=== PATIENT | male | born 2000 | race African-American/Black ===

== ENCOUNTER 2019-02-21 14:45 | Emergency (ER) | payer OTHER ==
[~2019-02-21] VITALS: Ht 167.6 cm; Wt 79.5 kg
[2019-02-21] MEDS ORDERED: SUMA50TA2 PO (14:51)
[2019-02-21] MEDS ORDERED: AIMO70IN SC (14:51)
[2019-02-21] MEDS ORDERED: diphenhydrAMINE INJ 50MG/ML VIAL (J1200) IV ONE (15:15)
[2019-02-21] MEDS ORDERED: METOCLOPRAMIDE INJ 10MG/2ML VIAL (J2765) IV ONE (15:15)
[2019-02-21] MEDS ORDERED: NS 1,000 ML IV ONE (15:15)
[2019-02-21] MEDS ORDERED: KETOROLAC 30 MG/ML VIAL (J1885) IV ONE (15:15)
[2019-02-21 16:55] VITALS: BP 130/60
== END 2019-02-21 16:59 | disposition home or self-care (01) ==
LOC: M ED 14:45
DX: G43.909 Migraine, unspecified, not intractable, without status migrainosus (principal); Z82.0 Family history of epilepsy and other diseases of the nervous system; Z79.899 Other long term (current) drug therapy
CPT/HCPCS: 96374; 96375; 99284; J1200; J1885; J2765

== ENCOUNTER 2019-04-09 08:03 | Inpatient (IN) | payer OTHER ==
[~2019-04-09] VITALS: Ht 167.6 cm; Wt 79.4 kg
[~2019-04-09 08:03] MED LIST: AIMO70IN SC; SUMA50TA2 PO
[2019-04-09] MEDS ORDERED: NS 1,000 ML IV ONE (08:15)
[2019-04-09 09:05] LABS: BASO % 0.4 % (0.0-1.0); EOS # 0.4 10^3/uL (0.0-0.50); EOS % 5.5 % (0.0-3.0); HEMATOCRIT 44.4 % (42.0-52.0); HEMOGLOBIN 14.9 g/dl (13.5-17.5); LYMPH # 2.3 10^3/uL (1.5-6.5); LYMPH % 32.9 % (24.0-44.0); MEAN CORPUSCULAR HEMOGLOBIN 30.5 pg (27.0-33.0); MEAN CORPUSCULAR HGB CONC 33.6 g/dl (32.0-36.5); MEAN CORPUSCULAR VOLUME 90.8 fl (80.0-96.0); MONO # 0.7 10^3/uL (0.0-0.8); NEUTROPHILS # 3.5 10^3/uL (1.8-7.7); NEUTROPHILS % 51.1 % (36.0-66.0); PLATELET COUNT, AUTOMATED 227 10^3/uL (150-450); RED BLOOD COUNT 4.89 10^6/uL (4.30-6.10); WHITE BLOOD COUNT 6.9 10^3/uL (4.0-10.0)
[2019-04-09 09:18] LABS: ALBUMIN 4.2 GM/DL (3.2-5.2); ALT/SGPT 17 U/L (12-78); BILIRUBIN,DIRECT 0.2 MG/DL (0.0-0.2); BILIRUBIN,TOTAL 0.7 MG/DL (0.2-1.0); BLOOD UREA NITROGEN 11 MG/DL (7-18); CALCIUM LEVEL 9.2 MG/DL (8.5-10.1); CARBON DIOXIDE LEVEL 29 MEQ/L (21-32); CHLORIDE LEVEL 106 MEQ/L (98-107); CPK CREATINE PHOSPHOKINASE 266 U/L (39-308); CREATININE FOR GFR 1.35 MG/DL (0.70-1.30); ETHYL ALCOHOL (ETHANOL) 0.004 % (0.000-0.010); GLUCOSE, FASTING 93 MG/DL (70-100); POTASSIUM SERUM 3.9 MEQ/L (3.5-5.1); SALICYLATE LEVEL < 1.7 MG/DL (5.0-30.0); SODIUM LEVEL 141 MEQ/L (136-145); TOTAL PROTEIN 7.4 GM/DL (6.4-8.2)
[2019-04-09 09:20] LABS: ACETAMINOPHEN LEVEL < 2.0 UG/ML (10.0-30.0)
[2019-04-09] MEDS ORDERED: RIZA10TA4 SL (11:37)
[2019-04-09] MEDS ORDERED: IBUP80TA PO (11:37)
[2019-04-09 12:32] LABS: AMPHETAMINES LEVEL URINE NEGATIVE (NEGATIVE); BARBITURATES URINE NEGATIVE (NEGATIVE); BENZODIAZEPINES URINE NEGATIVE (NEGATIVE); CANNABINOIDS URINE NEGATIVE (NEGATIVE); COCAINE METABOLITE URINE NEGATIVE (NEGATIVE); METHADONE URINE NEGATIVE (NEGATIVE); OPIATES URINE NEGATIVE (NEGATIVE); PHENCYCLIDINE URINE NEGATIVE (NEGATIVE)
[2019-04-09] MEDS ORDERED: MAALOX 30 ML SUSP *UDC PO PRN (19:00)
[2019-04-09] MEDS ORDERED: MOM 30ML SUSPENSION UDC PO PRN (19:00)
[2019-04-09] MEDS ORDERED: ACETAMINOPHEN TAB 650MG DOSE (2X325MG) PO PRN (19:00)
[2019-04-09] MEDS ORDERED: LORazepam 1 MG TAB PO PRN (19:00)
[2019-04-09] MEDS ORDERED: traZODone 50 MG TAB PO PRN (19:00)
--- NOTE | 2019-04-09 20:57 | ECGEPIP ---
[facility] - ED Test Date: 2019-04-09 Pat Name: LORI ROACH Department: Room: - Gender: Male Web Systems Developer: : 2000 Requested By: Hoa De La Garza Order Number: [id number] Reading MD: Hoa De La Garza Measurements Intervals [place] Rate: 79 P: 54 DC: 116 QRS: 81 QRSD: 117 T: 22 QT: 365 QTc: 421 Interpretive Statements SINUS RHYTHM WITH SHORT DC INTERVAL MODERATE INTRAVENTRICULAR CONDUCTION DELAY NO PRIOR FOR COMPARISON Electronically Signed on 04-09-2019 20:57:35 EDT by Hoa De La Garza
[2019-04-10 00:43] VITALS: BP 132/68
[2019-04-10 12:04] VITALS: BP 134/67
--- NOTE | 2019-04-10 13:24 | MHHPEPDOC ---
General Date Of Admission: April 10, 2019 Legal Status: 9.39 Chief Complaint Recent attempt to commit suicide by carbon monoxide intoxication. History of Present Illness HISTORY OF THE PRESENT ILLNESS: Patient is a 18 -year-old Other, male, who, according to ED report: "Reason for Referral Pt brought in on a 9.41 by [facility] Jade Haynes after pt did not report to PT this morning and she found him sitting in his car in the garage with the windows up, trying to commit suicide by carbon monoxide posioning. Chief Complaint Pt presented to ED via [facility]. Jade Morel after pt did not report to PT this morning. Maria Teresa went to pt's home to look for him and found pt in his garage, sitting in his car, with the windows rolled up and the car on, attempting suicide via carbon monoxide posioning. 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 Pt is from [place] and [place] is his first duty station. Pt reports having thoughts of suicide since mid-February but he could never bring himself to do anything. He states he thought of multiple ways to commit suicide since February but never did because he would always think about the people in his life and how much it would hurt them if he were to commit suicide. Pt reports that he does not know what was different about today and what prompted him to attempt suicide other than being at a "br eaking point" Pt has been since October 2018 and reports this is a good relationship. Pt has no previous hx of mental health issues/admission. He did report that his Maternal Grandmother is dx with Bi-polar d/o and mother is dx with depression. Pt did establish himself at [facility] (a clinic on [place]) for therapy and was seen 1 time last month and does not have his next scheduled appointment (he needs to call and make it). Pt denies HI, AH/VH, ETOH/substance abuse. Reports not sleeping well. Had poor eye contact during interview and had a flat affect." Psychiatric Review of Systems Depression (2 or more weeks): depressed mood, insomnia/hypersomnia, feelings of excess/guilt, feelings of worthlesness, psychomotor changes (sluggish), suicidal thoughts (He has SI for a long period of time and he kiser been able to block them, until now, that he attempted suicide), other (hopeless and helpless ) Lillie (4 or more days of): denies Psychosis: denies PTSD: denies Anxiety: situational anxiety, stressor related anxiety Anxiety/ 6 months or more of: irritability (sometimes), sleep disturbance (he wakes up several times during the night or wakes up one or two hours before his wake up time and h can't go back to sleep) Past Psychiatric History Previous Psychiatric Diagnosis: Denies Previous Psychiatric Admissions: Denies Suicide Attempts: Denies Psychiatric Follow-up: Just for the initial intake, he has been there once Psychiatric medications: Denies. Past Medical History Medical Problems Migraine headache, he snores Head Injury: Yes (he had concusions in the past, he didn't loose consciousnes) Seizures: No Hospitalizations: No Surgeries: No Family Medical/Psychiatric HX Medical Problems Father has hypertension and his maternal grandmother kiser bipolar disorder, his mother has depression, his maternal aunt has had depression and has attempted suicida, his cousin tried to kill himself a couple of weeks ago Psychiatric Disorders: Yes (his maternal grandmother kiser bipolar disorder, his mother has depression, his maternal aunt has had depression and has attempted suicide, his cousin tried to kill himself a couple of weeks ago) Addiction: Yes (his father was addicted to heroin a couple of years ago) Suicide Attemps/Completions: Yes Addiction History alcohol (occasionally) Social History Childhood: Was born in [place], [place] and moved to another area (poor area) and then they moved to a better neighborhood, they moved again when he was in Kindergarten, moved again when he was in 2nd. grade and moved again to the place his family stayed until he left for the [employer].His relationship with his parents has been good although he doesn't like to talk to his mother about his problems because he doesn't want to make her worried but he feels very comfortable talking to his dad. He says his parents marriage has been very confusing. His father has been unfaithful several times, had children with other woman and then, his mother has cheated on him.He has 4 sisters, 2 of them are his full blooded sisters and the half sisters are from his father's side. He gets along with them. He joined the [employer] because he didn't know what else he could do, he didn't have money to go to college. he wanted to make money, get his health insurance, life insurance, have a car and then, leave. 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 Mental Status Examination General Appearance: well groomed, appears stated age, hospital scubs/clothing Build: average Demeanor: average Eye Contact: avoidant Activity: average Behavior: cooperative Speech: clear, spontaneous, reg/rate,rhythm,volume Mood: depressed Affect: constricted, appropriate, congruent Thought Process: logical/linear Thought Content (Delusions): none reported Thought Content (Other): guarded, guilty, coherent Thought Content (Aggressive): none reported Perception (Hallucinations): none reported Perception (Other): none reported Cognition (Impairment of): none reported Cognition(Intelligence Est.): average Oriented: Awake, Alert, Oriented times three Insight: poor Judgment: Poor Psychosis: Denies Diagnoses 1. Major Depressive disorder, severe Assessment The patient says that he has problems communication, he doesn't know how to talk about his emotions, he feels that going to groups nd learning to be with other people, lose his fear is going to help him. he was agreeable to take medications, this literary writer will prescribe Zoloft 50 mgs Po daily Initial Treatment Plan 1. Patient was admitted on a [9.39] status. 2. Complete history was obtained. 3. With patients permission, family will be contacted and database will be expanded. 4. Patients medication regimen will be reviewed and changed accordingly. 5. Patient will be provided with protected environment. 6. Patient will be treated with individual, group, and milieu therapies. 7. Patient will receive supportive psych-education. 8. Discharge planning will commence immediately. 9. Outpatient follow-up treatment will be strongly recommended. 10. The initial treatment plan will focus initially on: * Depression. * Risk for suicide. * Ineffective coping ESTIMATED LENGTH OF STAY: 5-7 DAYS. TIME SPENT COUNSELING AND COORDINATING INITIAL CARE: 60 minutes. Vital Signs Vital Signs Date Time Temp Pulse Resp B/P (MAP) Pulse Ox O2 Delivery O2 Flow Rate FiO2 04/10/19 12:04 98.8 65 16 134/67 (89) 04/10/19 00:43 98 04/09/19 21:56 Room Air 04/09/19 08:18 15.0 Medications Scheduled PRN Ibuprofen (Ibuprofen) 800 Mg Tablet, 800 MG PO TID PRN for PAIN, (Reported) Rizatriptan Benzoate (Rizatriptan) 10 Mg Tab.rapdis, 10 MG SL DAILY PRN for MIGRAINE, (Reported) Allergies Coded Allergies: No Known Drug Allergies (Verified Allergy, Unknown, 02/21/19) TANIA MAIN MD April 10, 2019 13:24
--- NOTE | 2019-04-10 14:14 | HPEPDOC ---
General Date of Admission April 09, 2019 at 18:48 Date of Service: April 10, 2019 Attending Physician: MANDI ARREOLA MD Chief Complaint The patient is a 18-year-old male admitted with a reason for visit of Unspecified D/O. 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 Patient had been missed at work and on recheck was noted to be in his garage at home with car windows up attempting suicide by carbon monoxide poisoning. On assessment he denies any discomfort, denies chest pain, chills, cough, shortness of breath. Home Medications Scheduled PRN Ibuprofen (Ibuprofen) 800 Mg Tablet, 800 MG PO TID PRN for PAIN, (Reported) Rizatriptan Benzoate (Rizatriptan) 10 Mg Tab.rapdis, 10 MG SL DAILY PRN for MIGRAINE, (Reported) Allergies Coded Allergies: No Known Drug Allergies (Verified Allergy, Unknown, 02/21/19) Past Medical History Medical History Migraine headaches Surgical History Denies Family History Denies Social History * Smoker: Denies Alcohol: Denies Drugs: denies A-FIB/CHADSVASC A-FIB History Current/History of A-Fib/PAF?: No Current PO Anticoag Therapy: No Review of Systems Other systems A 10 point pertinent review of systems was completed, negative except as stated in the history of presenting illness. Physical Examination Other physical findings GENERAL: NAD SKIN : Warm, dry intact HEENT: Atraumatic, normocephalic, PERRL, moist mucous membrane CARDIOVASCULAR: Regular rate and rhythm, S1S2, no JVD, no edema, distal pulses + and palpable RESP: CTAB, no accessory muscle use noted ABDOMEN: BS+ non distended non tender MS: no joint deformities NEURO: Alert and oriented x 3, CN2-12 grossly intact PSYCH: no anxiety or agitation, appropriate mood and affect. Vital Signs Vital Signs Date Time Temp Pulse Resp B/P (MAP) Pulse Ox O2 Delivery O2 Flow Rate FiO2 04/10/19 12:04 98.8 65 16 134/67 (89) 04/10/19 00:43 98 04/09/19 21:56 Room Air 04/09/19 08:18 15.0 Assessment/Plan Migraine headache Depression Suicide attempt PLAN Currently, patient has no medical problems requiring active follow-up and management. DVT prophylaxis is not indicated since his frequently ambulatory in the unit. Please reconsult medical team for any concerns or issues Plan / VTE VTE Prophylaxis Ordered?: No VTE Exclusion Mechanical Proph: Low Risk for VTE KARON LU April 10, 2019 14:14
[2019-04-10] MEDS: SERTRALINE HCL 50 MG TAB PO SCH (14:21)
[2019-04-10 18:03] VITALS: BP 125/58
[2019-04-10 22:20] VITALS: BP 128/64
[2019-04-11 06:59] VITALS: BP 129/58
[2019-04-11] MEDS: SERTRALINE HCL 50 MG TAB PO SCH (08:23)
[2019-04-11 18:04] VITALS: BP 135/62
--- NOTE | 2019-04-11 21:32 | MHIPNPDOC ---
[facility] Progress Note Progress Note DATE OF SERVICE: 04/11/19 HISTORY: HISTORY OF THE PRESENT ILLNESS: Patient is a 18 -year-old Other, male, who, according to ED report: "Reason for Referral Pt brought in on a 9.41 by [facility] Jade Haynes after pt did not report to PT this morning and she found him sitting in his car in the garage with the windows up, trying to commit suicide by carbon monoxide posioning. Chief Complaint Pt presented to ED via STG. Jade Morel after pt did not report to PT this morning. STG. Morel went to pt's home to look for him and found pt in his garage, sitting in his car, with the windows rolled up and the car on, attempting suicide via carbon monoxide posioning. 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 Pt is from [place] and [place] is his first duty station. Pt reports having thoughts of suicide since mid- February but he could never bring himself to do anything. He states he thought of multiple ways to commit suicide since February but never did because he would always think about the people in his life and how much it would hurt them if he were to commit suicide. Pt reports that he does not know what was different about today and what prompted him to attempt suicide other than being at a "breaking point" Pt has been since October 2018 and reports this is a good relationship. Pt has no previous hx of mental health issues/admission. He did report that his Maternal Grandmother is dx with Bi-polar d/o and mother is dx with depression. Pt did establish himself at [facility] (a clinic on [place]) for therapy and was seen 1 time last month and does not have his next scheduled appointment (he needs to call and make it). Pt denies HI, AH/VH, ETOH/substance abuse. Reports not sleeping well. Had poor eye contact during interview and had a flat affect." VITAL SIGNS: See below. NEW TEST RESULTS: See below CURRENT MEDICATIONS: See below. MENTAL STATUS EXAMINATION: Patient is a 18-year old male, who is alert,cooperative, dressed in hospital clothes. Speech: Is spontaneous, fluent, normal rate, tone and volume. Language skills are good. Thought processes including: linear, coherent. Thought content: less depressed, more hopeful, denies SI/HI, reports his anxiety a 3-4/10 and his depression 4/10. Abstract reasoning, and computation: good. Description of associations: good. Description of abnormal or psychotic thoughts: denies psychosis. Judgment: improving. Insight: improving. Orientation: x 4. Recent and remote memory: intact. Attention span and concentration: good. Language: normal. Fund of knowledge: average. Mood: less depressed, less preoccupied. Affect: constricted, congruent with mood. DIAGNOSES: 1. Major Depressive disorder, severe ASSESSMENT: The patient seems to be improving, he has been attending groups, he is learning some coping skills. Reports no medication side effects. MANAGEMENT PLAN: Will continue with the same treatment plan TIME SPENT: 15 minutes. Vital Signs Vital Signs Date Time Temp Pulse Resp B/P (MAP) Pulse Ox O2 Delivery O2 Flow Rate FiO2 04/11/19 18:04 99.2 66 16 135/62 (86) 04/10/19 00:43 98 04/09/19 21:56 Room Air 04/09/19 08:18 15.0 Current Medications Current Medications Acetaminophen (Tylenol Tab) 650 mg Q6HP PRN PO HEADACHE or DISCOMFORT; Start 04/09/19 at 19:00 Al Hydrox/Mg Hydrox/Simethicone (Mylanta) 30 ml Q4HP PRN PO HEARTBURN/INDIGESTION; Start 04/09/19 at 19:00 Home Med (Med Rec Complete!) ASDIRECTED XX ; Start 04/09/19 at 11:45; Stop 04/09/19 at 11:45; Status DC Lorazepam (Ativan) 1 mg Q6HP PRN PO ANXIETY/AGITATION; Start 04/09/19 at 19:00 Magnesium Hydroxide (Milk Of Magnesia) 30 ml DAILYPRN PRN PO CONSTIPATION; Start 04/09/19 at 19:00 Sertraline HCl (Zoloft) 50 mg DAILY PO Last administered on 04/11/19at 08:23; Start 04/10/19 at 09:00 Trazodone HCl (Desyrel) 50 mg QHSP PRN PO INSOMNIA; Start 04/09/19 at 19:00 Allergies Coded Allergies: No Known Drug Allergies (Verified Allergy, Unknown, 02/21/19) TANIA MAIN MD April 11, 2019 21:32
[2019-04-12 06:35] VITALS: BP 125/58
[2019-04-12] MEDS: SERTRALINE HCL 50 MG TAB PO SCH (09:24)
[2019-04-12 17:56] VITALS: BP 101/51
--- NOTE | 2019-04-12 23:21 | MHIPNPDOC ---
[facility] Progress Note Progress Note DATE OF SERVICE: 04/12/19 HISTORY: HISTORY OF THE PRESENT ILLNESS: Patient is a 18 -year-old Other, male, who, according to ED report: "Reason for Referral Pt brought in on a 9.41 by ST[facility] Jade Haynes after pt did not report to PT this morning and she found him sitting in his car in the garage with the windows up, trying to commit suicide by carbon monoxide posioning. Chief Complaint Pt presented to ED via STG. Jade Morel after pt did not report to PT this morning. STG. Morel went to pt's home to look for him and found pt in his garage, sitting in his car, with the windows rolled up and the car on, attempting suicide via carbon monoxide posioning. 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 Pt is from [place] and [place] is his first duty station. Pt reports having thoughts of suicide since mid- February but he could never bring himself to do anything. He states he thought of multiple ways to commit suicide since February but never did because he would always think about the people in his life and how much it would hurt them if he were to commit suicide. Pt reports that he does not know what was different about today and what prompted him to attempt suicide other than being at a "breaking point" Pt has been since October 2018 and reports this is a good relationship. Pt has no previous hx of mental health issues/admission. He did report that his Maternal Grandmother is dx with Bi-polar d/o and mother is dx with depression. Pt did establish himself at [facility] (a clinic on [place]) for therapy and was seen 1 time last month and does not have his next scheduled appointment (he needs to call and make it). Pt denies HI, AH/VH, ETOH/substance abuse. Reports not sleeping well. Had poor eye contact during interview and had a flat affect." VITAL SIGNS: See below. NEW TEST RESULTS: See below CURRENT MEDICATIONS: See below. MENTAL STATUS EXAMINATION: Patient is a 18-year old male, who is alert,cooperative, dressed in hospital clothes. Speech: Is spontaneous, fluent, normal rate, tone and volume. Language skills are good. Thought processes including: linear, coherent. Thought content: less depressed, more hopeful, denies SI/HI, reports his anxiety a 2/10 and his depression 1/10. Abstract reasoning, and computation: good. Description of associations: good. Description of abnormal or psychotic thoughts: denies psychosis. Judgment: improving. Insight: improving. Orientation: x 4. Recent and remote memory: intact. Attention span and concentration: good. Language: normal. Fund of knowledge: average. Mood: less depressed, less preoccupied. Affect: constricted, congruent with mood. DIAGNOSES: 1. Major Depressive disorder, severe ASSESSMENT: The patient was more talkative than usual, he is learning to express his emotions. He mentioned he liked going to groups, not those that are for coloring but those that are for writing because he enjoys writing and it helps him relieve stress. He always has feared been scrutinized by others while he talks. His mood and affect have improved, he smiles. He could be discharged early next week. MANAGEMENT PLAN: Will continue with the same treatment plan TIME SPENT: 15 minutes. Vital Signs Vital Signs Date Time Temp Pulse Resp B/P (MAP) Pulse Ox O2 Delivery O2 Flow Rate FiO2 04/12/19 17:56 100.1 80 16 101/51 (68) 04/10/19 00:43 98 04/09/19 21:56 Room Air 04/09/19 08:18 15.0 Current Medications Current Medications Acetaminophen (Tylenol Tab) 650 mg Q6HP PRN PO HEADACHE or DISCOMFORT; Start 04/09/19 at 19:00 Al Hydrox/Mg Hydrox/Simethicone (Mylanta) 30 ml Q4HP PRN PO HEARTBURN/INDIGESTION; Start 04/09/19 at 19:00 Home Med (Med Rec Complete!) ASDIRECTED XX ; Start 04/09/19 at 11:45; Stop 04/09/19 at 11:45; Status DC Lorazepam (Ativan) 1 mg Q6HP PRN PO ANXIETY/AGITATION; Start 04/09/19 at 19:00 Magnesium Hydroxide (Milk Of Magnesia) 30 ml DAILYPRN PRN PO CONSTIPATION; Start 04/09/19 at 19:00 Sertraline HCl (Zoloft) 50 mg DAILY PO Last administered on 04/12/19at 09:24; Start 04/10/19 at 09:00 Trazodone HCl (Desyrel) 50 mg QHSP PRN PO INSOMNIA; Start 04/09/19 at 19:00 Allergies Coded Allergies: No Known Drug Allergies (Verified Allergy, Unknown, 02/21/19) TANIA MAIN MD April 12, 2019 23:21
[2019-04-13 06:51] VITALS: BP 137/62
[2019-04-13] MEDS: SERTRALINE HCL 50 MG TAB PO SCH (08:59)
--- NOTE | 2019-04-13 16:06 | IPN ---
DATE: 04/13/2019 CHIEF COMPLAINT: He says he is better. SUBJECTIVE: Seen for followup in the presence of staff. Says feels better, and that he is less anxious, less depressed, more confident. Sleep is good. He has been eating okay. MENTAL STATUS EXAMINATION: Neat, cooperative. No agitation. No psychomotor retardation. He is coherent. Affect is somewhat restricted in range. He denies any suicidal thoughts or intents. Currently, no evidence of any homicidal ideas or intents. No evidence of any psychosis. His cognition is grossly intact and his judgment is fair, as is insight. ASSESSMENT: Major depressive disorder, severe. Feels better, and he is encouraged by that. PLAN: Continue current care, including the sertraline. He tolerates it well so far. May need to consider an increase. He is to be encouraged to participate in activities in the unit. VITAL SIGNS: Blood pressure 137/62, pulse 49, temperature 96.5.
[2019-04-13 18:19] VITALS: BP 143/58
[2019-04-14 06:40] VITALS: BP 106/63
[2019-04-14] MEDS: SERTRALINE HCL 50 MG TAB PO SCH (08:25)
[2019-04-14 18:06] VITALS: BP 130/60
[2019-04-15 07:00] VITALS: BP 127/60
[2019-04-15] MEDS: SERTRALINE HCL 50 MG TAB PO SCH (08:40)
[2019-04-15 18:27] VITALS: BP 136/61
--- NOTE | 2019-04-15 20:35 | MHIPNPDOC ---
[facility] Progress Note Progress Note DATE OF SERVICE: 04/15/19 HISTORY: HISTORY OF THE PRESENT ILLNESS: Patient is a 18 -year-old Other, male, who, according to ED report: "Reason for Referral Pt brought in on a 9.41 by STG Jade Haynes after pt did not report to PT this morning and she found him sitting in his car in the garage with the windows up, trying to commit suicide by carbon monoxide posioning. Chief Complaint Pt presented to ED via STG. Jade Morel after pt did not report to PT this morning. STG. Morel went to pt's home to look for him and found pt in his garage, sitting in his car, with the windows rolled up and the car on, attempting suicide via carbon monoxide posioning. 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 Pt is from [place] and [place] is his first duty station. Pt reports having thoughts of suicide since mid- February but he could never bring himself to do anything. He states he thought of multiple ways to commit suicide since February but never did because he would always think about the people in his life and how much it would hurt them if he were to commit suicide. Pt reports that he does not know what was different about today and what prompted him to attempt suicide other than being at a "breaking point" Pt has been since October 2018 and reports this is a good relationship. Pt has no previous hx of mental health issues/admission. He did report that his Maternal Grandmother is dx with Bi-polar d/o and mother is dx with depression. Pt did establish himself at [facility] (a clinic on [place]) for therapy and was seen 1 time last month and does not have his next scheduled appointment (he needs to call and make it). Pt denies HI, AH/VH, ETOH/substance abuse. Reports not sleeping well. Had poor eye contact during interview and had a flat affect." VITAL SIGNS: See below. NEW TEST RESULTS: See below CURRENT MEDICATIONS: See below. MENTAL STATUS EXAMINATION: Patient is a 18-year old male, who is alert,cooperative, dressed in hospital clothes. Speech: Is spontaneous, fluent, normal rate, tone and volume. Language skills are good. Thought processes including: linear, coherent. Thought content: less depressed, more hopeful, denies SI/HI, reports his anxiety a 2/10 and his depression 1/10. Abstract reasoning, and computation: good. Description of associations: good. Description of abnormal or psychotic thoughts: denies psychosis. Judgment: improving. Insight: improving. Orientation: x 4. Recent and remote memory: intact. Attention span and concentration: good. Language: normal. Fund of knowledge: average. Mood: less depressed, less preoccupied. Affect: less constricted, congruent with mood. DIAGNOSES: 1. Major Depressive disorder, severe ASSESSMENT: The patient says he doesn't regret being hospitalized. I explained that I would feel better if he left tomorrow, so that he continues to attend groups and continue learning coping skills. Patient's mood and affect have improved and so has his attitude towards life. MANAGEMENT PLAN: Will continue with the same treatment plan TIME SPENT: 15 minutes. Vital Signs Vital Signs Date Time Temp Pulse Resp B/P (MAP) Pulse Ox O2 Delivery O2 Flow Rate FiO2 04/15/19 18:27 99.2 72 20 136/61 (86) 04/10/19 00:43 98 04/09/19 21:56 Room Air 04/09/19 08:18 15.0 Current Medications Current Medications Acetaminophen (Tylenol Tab) 650 mg Q6HP PRN PO HEADACHE or DISCOMFORT; Start 04/09/19 at 19:00 Al Hydrox/Mg Hydrox/Simethicone (Mylanta) 30 ml Q4HP PRN PO HEARTBURN/INDIGESTION; Start 04/09/19 at 19:00 Home Med (Med Rec Complete!) ASDIRECTED XX ; Start 04/09/19 at 11:45; Stop 04/09/19 at 11:45; Status DC Lorazepam (Ativan) 1 mg Q6HP PRN PO ANXIETY/AGITATION; Start 04/09/19 at 19:00 Magnesium Hydroxide (Milk Of Magnesia) 30 ml DAILYPRN PRN PO CONSTIPATION; Start 04/09/19 at 19:00 Miscellaneous (Unresolved Clarification Entry) SEE LABEL COMMENTS DAILY XX ; Start 04/15/19 at 09:00 Sertraline HCl (Zoloft) 50 mg DAILY PO Last administered on 04/15/19at 08:40; Start 04/10/19 at 09:00 Trazodone HCl (Desyrel) 50 mg QHSP PRN PO INSOMNIA; Start 04/09/19 at 19:00 Allergies Coded Allergies: No Known Drug Allergies (Verified Allergy, Unknown, 02/21/19) TANIA MAIN MD Apr 15, 2019 20:35
[2019-04-16 06:36] VITALS: BP 130/57
[2019-04-16] MEDS: SERTRALINE HCL 50 MG TAB PO SCH (08:26)
[2019-04-16] MEDS ORDERED: SERT-155 PO (10:36)
[2019-04-16] MEDS ORDERED: TRAZ1TAB10 PO (10:36)
--- NOTE | 2019-04-16 20:17 | MHDSPDOC ---
[facility] Discharge Summary Discharge Summary DATE OF ADMISSION: April 09, 2019 at 18:48 DATE OF DISCHARGE: Apr 16, 2019 at 12:06 DISCHARGE DIAGNOSES: 1. Major Depressive Disorder REASON FOR ADMISSION: HISTORY OF THE PRESENT ILLNESS: Patient is a 18 -year-old Other, male, who, according to ED report: "Reason for Referral Pt brought in on a 9.41 by STG Jade Haynes after pt did not report to PT this morning and she found him sitting in his car in the garage with the windows up, trying to commit suicide by carbon monoxide posioning. Chief Complaint Pt presented to ED via STG. Jade Maria Teresa after pt did not report to PT this morning. Maria Teresa went to pt's home to look for him and found pt in his garage, sitting in his car, with the windows rolled up and the car on, attempting suicide via carbon monoxide posioning. 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 Pt is from [place] and [place] is his first duty station. Pt reports having thoughts of suicide since mid- February but he could never bring himself to do anything. He states he thought of multiple ways to commit suicide since February but never did because he would always think about the people in his life and how much it would hurt them if he were to commit suicide. Pt reports that he does not know what was different about today and what prompted him to attempt suicide other than being at a "breaking point" Pt has been since October 2018 and reports this is a good relationship. Pt has no previous hx of mental health issues/admission. He did report that his Maternal Grandmother is dx with Bi-polar d/o and mother is dx with depression. Pt did establish himself at [facility] (a clinic on [place]) for therapy and was seen 1 time last month and does not have his next scheduled appointment (he needs to call and make it). Pt denies HI, AH/VH, ETOH/substance abuse. Reports not sleeping well. Had poor eye contact during interview and had a flat affect." CONSULTANTS INVOLVED: None TREATMENT AND PROGRESS ON THE UNIT : Upon initial evaluation the patient was very depressed, he had poor eye contact, his responses were short and brief. He reported through his hospitalization that he always had problems when he was in groups (it was hard for him to attend groups) because since childhood he had felt as if people were scrutinizing him. He said he had been feeling hopeless and helpless, was unhappy with his job. He didn't want to worry all those people that are in his life, he doesn't want to be a burden for anyone. He was invested in his treatment and he went to groups. He said he didn't like those groups were he had to color but he liked those that involved written expression because he always felt that he could express his thoughts and emotions through writing. 48 hours after his admission he reported feeling pleased of how much he was learning at [facility] regarding coping skills. The patient received Zoloft since his admission and he showed a good response to it. He took only once, Trazodone 50 mgs for sleep and although he could have taken Ativan 1 mg PO Q6HP for anxiety/agitation, he didn't take it. During his hospitalization he became more verbal, he was able to express his emotions, he was able to establish eye contact and smile, he showed improvement. HOSPITAL COURSE: As above DISCHARGE ASSESSMENT: The patient was not homicidal, not suicidal and not psychotic. He had a good response to medications, he didn't report, not were observed, negative side effects to these medications. He was future orientated and motivated to continue his treatment. MENTAL STATUS EXAMINATION ON DISCHARGE: Patient is a 18-year old male, who is alert,cooperative, dressed in personal clothes. Speech: Is spontaneous, fluent, normal rate, tone and volume. Language skills are good. Thought processes including: linear, coherent. Thought content: less depressed, more hopeful, denies SI/HI, reports he had trouble falling asleep last night because he was nervous about his discharge meeting Abstract reasoning, and computation: good. Description of associations: good. Description of abnormal or psychotic thoughts: denies psychosis. Judgment: improving. Insight: improving. Orientation: x 4. Recent and remote memory: intact. Attention span and concentration: good. Language: normal. Fund of knowledge: average. Mood: less depressed . Affect: less constricted, congruent with mood. MEDICATIONS ON DISCHARGE: Scheduled Sertraline HCl (Sertraline HCl) 50 Mg Tablet, 50 MG PO DAILY for depression, #7 Scheduled PRN Ibuprofen (Ibuprofen) 800 Mg Tablet, 800 MG PO TID PRN for PAIN, (Reported) Rizatriptan Benzoate (Rizatriptan) 10 Mg Tab.rapdis, 10 MG SL DAILY PRN for MIGRAINE, (Reported) Trazodone HCl (Trazodone HCl) 50 Mg Tablet, 50 MG PO QHSP PRN for INSOMNIA, # PLAN/FOLLOWUP ARRANGEMENTS: Follow Up Care Education Label * Mental Health Appt 1 * Mental Health [address] [place] [address] * Established With This Provider Yes * Additional information BEHAVIORAL HEALTH CL/DRUM1 SHAR JACOB [id number] FTR/30 [facility] IOP/UM1 ROSE ALFARO [id number] GRP/[address] CLINIC/3BCT JODY,HEATHER [id number]@1400 FTR/[address]/DRUM1 SOMMER, [id number]@0800 SPEC/[address] CLINIC/3BCT JODY,HEATHER [id number]@1300 FTR/60 [facility]- [address] CLINIC/3BCT JODY,HEATHER [id number]@1300 FTR/60 PENDING- [address] CLINIC/3BCT JODY,HEATHER [id number]@1100 FTR/60 PENDING- [address] [facility] CLINIC/3BCT JODY,HEATHER [id number] FTR/60 [facility] [address] CLINIC/3BCT MONGILLO,KA [id number] SPEC/90 [facility] 3 [facility] Clinic Follow Up Care Education Label * Medical * Medical Follow Up NICOL[facility]A * Established With This Provider Yes * Therapist DR. PARIKH * Date Apr 23, 2019 * Time 11:40 * Follow Up Care Education Label * Smoking Cessation * Mental Health [facility] * Smoking Cessation [facility] Smoking Cessation * Additional information see attached form The amount of time spent in the coordination of care for this patient was approximately 30 minutes. Vital Signs/I&Os Vital Signs Date Time Temp Pulse Resp B/P (MAP) Pulse Ox O2 Delivery O2 Flow Rate FiO2 04/16/19 06:36 98.2 63 14 130/57 (81) 04/10/19 00:43 98 Medications Scheduled Sertraline HCl (Sertraline HCl) 50 Mg Tablet, 50 MG PO DAILY for depression, #7 Scheduled PRN Ibuprofen (Ibuprofen) 800 Mg Tablet, 800 MG PO TID PRN for PAIN, (Reported) Rizatriptan Benzoate (Rizatriptan) 10 Mg Tab.rapdis, 10 MG SL DAILY PRN for MIGRAINE, (Reported) Trazodone HCl (Trazodone HCl) 50 Mg Tablet, 50 MG PO QHSP PRN for INSOMNIA, #7 Allergies Coded Allergies: No Known Drug Allergies (Verified Allergy, Unknown, 02/21/19) TANIA MAIN MD Apr 16, 2019 20:14
== END 2019-04-16 12:06 | disposition home or self-care (01) | DRG 881 ==
LOC: M ED 08:03 → EDBD 08:03 → M ED INP 18:48 → M PSY 04-10 00:04
PROVIDERS: ADMIT Psychiatry & Neurology Psychiatry; ATTEND Psychiatry & Neurology Psychiatry
DX: F32.9 Major depressive disorder, single episode, unspecified (principal); G43.909 Migraine, unspecified, not intractable, without status migrainosus

== ENCOUNTER 2019-07-08 14:26 | Emergency (ER) | payer OTHER ==
[~2019-07-08] VITALS: Ht 167.6 cm; Wt 77.3 kg
[~2019-07-08 14:26] MED LIST changes: +IBUP80TA PO; +RIZA10TA4 SL; +SERT-155 PO; +TRAZ1TAB10 PO
[2019-07-08] MEDS ORDERED: diphenhydrAMINE INJ 50MG/ML VIAL (J1200) IV ONE (17:45)
[2019-07-08] MEDS ORDERED: KETOROLAC 30 MG/ML VIAL (J1885) IV ONE (17:45)
[2019-07-08] MEDS ORDERED: METOCLOPRAMIDE INJ 10MG/2ML VIAL (J2765) IV ONE (17:45)
[2019-07-08] MEDS ORDERED: NS 1,000 ML IV ONE (17:45)
[2019-07-08 20:35] VITALS: BP 126/65
== END 2019-07-08 20:36 | disposition home or self-care (01) ==
LOC: M ED 14:26
DX: G43.909 Migraine, unspecified, not intractable, without status migrainosus (principal); R11.0 Nausea; F32.9 Major depressive disorder, single episode, unspecified
CPT/HCPCS: 96374; 96375; 99284; J1200; J1885; J2765

== ENCOUNTER 2019-08-27 10:52 | Emergency (ER) | payer OTHER ==
[~2019-08-27] VITALS: Ht 167.6 cm; Wt 79.5 kg
[~2019-08-27 10:52] MED LIST changes: -RIZA10TA4 SL; +RIZA10TA58 SL; -SERT-155 PO; +SERT50TA29 PO
[2019-08-27 11:35] LABS: HEMATOCRIT 42.8 % (42.0-52.0); HEMOGLOBIN 14.8 g/dl (13.5-17.5); MEAN CORPUSCULAR HGB CONC 34.6 g/dl (32.0-36.5); MEAN CORPUSCULAR VOLUME 92.6 fl (80.0-96.0); PLATELET COUNT, AUTOMATED 202 10^3/uL (150-450); RED BLOOD COUNT 4.62 10^6/uL (4.30-6.10)
[2019-08-27 11:59] LABS: AMPHETAMINES LEVEL URINE NEGATIVE (NEGATIVE); BARBITURATES URINE NEGATIVE (NEGATIVE); BENZODIAZEPINES URINE NEGATIVE (NEGATIVE); CANNABINOIDS URINE NEGATIVE (NEGATIVE); COCAINE METABOLITE URINE NEGATIVE (NEGATIVE); METHADONE URINE NEGATIVE (NEGATIVE); OPIATES URINE NEGATIVE (NEGATIVE); PHENCYCLIDINE URINE NEGATIVE (NEGATIVE)
[2019-08-27 12:09] LABS: ACETAMINOPHEN LEVEL < 2.0 UG/ML (10.0-30.0); ALT/SGPT 22 U/L (12-78); BILIRUBIN,DIRECT 0.2 MG/DL (0.0-0.2); BILIRUBIN,TOTAL 0.5 MG/DL (0.2-1.0); BLOOD UREA NITROGEN 18 MG/DL (7-18); CALCIUM LEVEL 9.3 MG/DL (8.5-10.1); CARBON DIOXIDE LEVEL 27 MEQ/L (21-32); CHLORIDE LEVEL 107 MEQ/L (98-107); CREATININE FOR GFR 1.43 MG/DL (0.70-1.30); ETHYL ALCOHOL (ETHANOL) < 0.003 % (0.000-0.010); GLUCOSE, FASTING 85 MG/DL (70-100); POTASSIUM SERUM 3.7 MEQ/L (3.5-5.1); SALICYLATE LEVEL < 1.7 MG/DL (5.0-30.0); SODIUM LEVEL 141 MEQ/L (136-145); TOTAL PROTEIN 7.4 GM/DL (6.4-8.2)
--- NOTE | 2019-08-27 21:32 | ECGEPIP ---
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
[2019-08-27 22:49] VITALS: BP 141/69
== END 2019-08-27 23:10 ==
LOC: M ED 10:52 → EDBD 10:52 → M ED 23:10
DX: F33.9 Major depressive disorder, recurrent, unspecified (principal); R45.851 Suicidal ideations; Z91.5 Personal history of self-harm; F10.10 Alcohol abuse, uncomplicated; G43.909 Migraine, unspecified, not intractable, without status migrainosus; Z63.0 Problems in relationship with spouse or partner
CPT/HCPCS: 36415; 80048; 80076; 80307; 82375; 84443; 85027; 93005; 99284; G0480